=== PATIENT | male | born 1970 | race Caucasian/White ===

== ENCOUNTER 2023-12-28 12:11 | Emergency (ER) | payer MEDICAID, SELFPAY ==
[2023-12-28 12:22] VITALS: BP 129/81; PULSE 74; RESP 18; TEMP 36.8; O2SAT 94; BMI 28.7
--- NOTE | 2023-12-28 12:31 | EDNOTE_ITS ---
ED Dental RME/HPI General Chief complaint: Dental/Oral/Throat Stated complaint: DENTAL PAIN/SWELLING Time Seen by Provider: 12/28/23 12:13 Arrival date/time: 12/28/23 12:11 53-year-old male presents emerged department complains of right lower dental pain patient for symptoms well for last couple of days patient reports no fever nausea vomiting Limitations: no limitations Related Data Previous Rx's ?Medication ?Instructions ?Recorded amoxicillin 875 mg-potassium 1 tab PO BID 7 days #14 tabs 12/28/23 clavulanate 125 mg tablet hydrocodone 5 mg-acetaminophen 325 1 tab PO BID PRN pain #8 tabs 12/28/23 mg tablet ibuprofen 800 mg tablet 800 mg PO TID PRN pain #30 tabs 12/28/23 Allergies Allergy/AdvReac Type Severity Reaction Status Date / Time No Known Allergies Allergy Verified 12/28/23 12:14 Review of Systems Review of Systems Systems Reviewed: All systems reviewed, normal except as documented Constitutional Constitutional: Reports system reviewed and no additional complaints, except as documented, Denies fever(s) and Denies headache(s) Eyes Eyes: Reports system reviewed and no additional complaints, except as documented and Denies blurry vision ENT Ears, Nose, Mouth, and Throat: Reports system reviewed and no additional complaints, except as documented, Reports dental pain, Reports facial pain, Denies headache(s), Denies nasal congestion and Denies nasal discharge Cardiovascular Cardiovascular: Reports system reviewed and no additional complaints, except as documented, Denies chest pain and Denies dyspnea Respiratory Respiratory: Reports system reviewed and no additional complaints, except as documented, Denies chest congestion, Denies cough and Denies dyspnea Gastrointestinal Gastrointestinal: Reports system reviewed and no additional complaints, except as documented and Denies abdominal pain Integumentary/Breasts Skin/Breast: Reports system reviewed and no additional complaints, except as documented and Denies rash Neurologic Neurologic: Reports system reviewed and no additional complaints, except as documented, Reports as per HPI and Denies headache(s) Past Medical History Social History SMOKING STATUS: Never smoker ED Exam General Limitations: Present no limitations General appearance: Present alert and in no apparent distress Head Head exam: Present atraumatic Eye Eye exam: Present normal appearance, PERRL and EOMI ENT ENT exam: Present mucous membranes moist Expanded ENT Exam Teeth exam: Present dental caries, fractured tooth #, dental tenderness # and gingival swelling Throat exam: Absent tonsillar erythema or tonsillomegaly Neck Neck exam: Present normal inspection, full ROM and trachea midline Chest Chest inspection: Present normal inspection and symmetric chest wall rise Respiratory Respiratory exam: Present normal lung sounds bilaterally Cardiovascular Cardiovascular exam: Present regular rate, normal rhythm and normal heart sounds Abdominal Exam Abdominal exam: Present soft and normal bowel sounds Extremities Exam Extremities exam: Present normal inspection and full ROM Back Exam Back exam: Present normal inspection and full ROM Neurological Exam Neurological exam: Present alert, oriented X3 and CN II-XII intact Psychiatric Psychiatric exam: Present normal affect and normal mood Skin Skin exam: Present warm, dry, intact and normal color Course Quality Measures none Orders Category Date Time Status Ibuprofen Tab [Motrin Tab] Med 12/28/23 12:29 Discontinued 800 mg PO X1 ONE Lidocaine 1% 20 ml [Xylocaine 1% 20 ML] Med 12/28/23 12:29 Discontinued 2.1 ml INFL X1 ONE cefTRIAXone [Rocephin] Med 12/28/23 12:29 Discontinued 1,000 mg IM X1 ONE Vital Signs Vital signs: Vital Signs Temperature 98.3 F 12/28/23 12:22 Pulse Rate 74 12/28/23 12:22 Respiratory Rate 18 12/28/23 12:22 Blood Pressure 129/81 12/28/23 12:22 Pulse Oximetry (%) 94 L 12/28/23 12:22 Oxygen Delivery Method Room Air 12/28/23 12:22 O2 saturation 94% room air within the limits Dental / Oral MDM Narrative MDM Narrative:: 53-year-old male presents emergency department complains of right lower dental pain patient for symptoms well for last couple of days patient reports no fever nausea vomiting On exam patient well-appearing patient does not appear ill or toxic Exam patient does have right lower jaw swelling and dental pain patient has poor dentition Patient given Rocephin as well as pain medication discharged with antibiotics and pain medication Patient struck to follow-up with dentist soon as possible Patient data External records reviewed:: [facility] previous records Clinical information provided by:: patient Social determinants that could affect healthcare access:: none Patient has the following chronic illnesses:: None How is presenting disease/condition affected by chronic disease/condition?: no chronic disease Evaluation data The following diagnostics were reviewed and interpreted by me:: other (specify) (N/A) Lab and/or radiology exams considered but not ordered:: Consider not ordered Interpretation Summary: N/A Medications / Prescriptions Medications or Prescriptions considered but not ordered:: Given Medication administrations:: Medication Administration History Discontinued Medications Ceftriaxone Sodium (Ceftriaxone Sod Inj 1,000 Mg Vial) 1,000 mg IM X1 ONE Stop: 12/28/23 12:30 Last Admin: 12/28/23 12:46 Dose: 1,000 mg Documented By: SELENA Ibuprofen (Ibuprofen Tab 400 Mg Tablet) 800 mg PO X1 ONE Stop: 12/28/23 12:30 Last Admin: 12/28/23 12:46 Dose: 800 mg Documented By: SELENA Lidocaine HCl (Lidocaine Hcl 1% 20 Ml Vial) 2.1 ml INFL X1 ONE Stop: 12/28/23 12:30 Last Admin: 12/28/23 12:46 Dose: 2.1 ml Documented By: MP Given Consultations Consultation(s) initiated? (list below): No Diagnosis Dental Differential Diagnosis: gingival abscess, dental caries, toothache, dental abscess and fracture of tooth Most likely diagnosis given after review of the tests above:: Dental pain Admission Indicated Admission indicated?: not indicated Admission Request Was there a request for admission?: No Disposition Plan Disposition Plan: Discharge Discharge Attestation Discharge Attestation: The patient and all family members were given an opportunity to ask questions and understood the discharge instructions. Discharge instructions specifically effects, indications for sooner follow up or return to the emergency department, and the expected course of current diagnosis. Patient condition: Stable Discharge Plan Plan Patient Disposition: HOME (Self Care) Disposition Comment: Stable Prescriptions/Referrals Prescriptions/Med Rec: New ibuprofen 800 mg tablet 800 mg PO TID PRN (Reason: pain) Qty: 30 0RF hydrocodone-acetaminophen 5-325 mg tablet 1 tab PO BID MDD 10 PRN (Reason: pain) Qty: 8 0RF amoxicillin-pot clavulanate 875-125 mg tablet 1 tab PO BID 7 Days Qty: 14 0RF Problem List Clinical Impression: Dental abscess Patient/Caregiver Discharge Instructions Education Materials: Dental Abscess Additional Instructions: Please see dentist soon as possible for worsening symptoms return immediately Print Language: Turkish Stand Alone Forms: Sudha Award Info., Patient Portal Info Letter PA/YOBANY Supervising Physician PA/YOBANY Supervising Physician: Dr. Fregoso
[2023-12-28] MEDS: IBUPROFEN TAB 400 MG TABLET 800 MG PO (12:46)
[2023-12-28] MEDS: LIDOCAINE HCL 1% 20 ML VIAL 2.1 ML INFL (12:46)
[2023-12-28] MEDS: cefTRIAXone SOD INJ 1,000 MG VIAL 1000 MG IM (12:46)
== END 2023-12-28 12:47 | disposition home or self-care (01) ==
LOC: SERX 12:49
PROVIDERS: Emergency Provider Emergency Medicine; PCP Nurse Practitioner Women's Health
DX: K04.7 Periapical abscess without sinus (principal)
CPT/HCPCS: 96372; 99283; J0696; J3490; A9270

== ENCOUNTER 2024-04-26 13:58 | Emergency (ER) | payer SELFPAY ==
[2024-04-26 14:24] VITALS: BP 125/79; PULSE 76; RESP 16; TEMP 36.7; O2SAT 95; BMI 27.3
--- NOTE | 2024-04-26 14:33 | EDNOTE_ITS ---
ED Psych RME/HPI General Chief Complaint: Psychiatric Symptoms Stated Complaint: I HEAR VOICES ; HAS REFERREL FROM HUMAN RESOURCES Time Seen by Provider: 04/26/24 14:33 Arrival date/time: 04/26/24 13:58 53-year-old male with medical history significant for psychiatric disorder and previous history of methamphetamine abuse presents requesting I fill out his disability paperwork. Current patient reports no chest pain no shortness of breath no headache does not weakness no suicidal or homicidal ideation Limitations: no limitations Related Data Previous Rx's ?Medication ?Instructions ?Recorded hydrocodone 5 mg-acetaminophen 325 1 tab PO BID PRN pa in #8 tabs 12/28/23 mg tablet ibuprofen 800 mg tablet 800 mg PO TID PRN pain #30 t abs 12/28/23 Allergies Allergy/AdvReac Type Severity Reaction Status Date / Time No Known Allergies Allergy Verified 04/26/24 14:00 Review of Systems Review of Systems Systems Reviewed: All systems reviewed, normal except as documented Constitutional Constitutional: Reports system reviewed and no additional complaints, except as documented, Denies fever(s) and Denies headache(s) Eyes Eyes: Reports system reviewed and no additional complaints, except as documented and Denies blurry vision ENT Ears, Nose, Mouth, and Throat: Reports system reviewed and no additional complaints, except as documented, Denies headache(s), Denies nasal congestion and Denies nasal discharge Cardiovascular Cardiovascular: Reports system reviewed and no additional complaints, except as documented, Denies chest pain and Denies dyspnea Respiratory Respiratory: Reports system reviewed and no additional complaints, except as documented, Denies chest congestion, Denies cough and Denies dyspnea Gastrointestinal Gastrointestinal: Reports system reviewed and no additional complaints, except as documented and Denies abdominal pain Integumentary/Breasts Skin/Breast: Reports system reviewed and no additional complaints, except as documented and Denies rash Neurologic Neurologic: Reports system reviewed and no additional complaints, except as documented, Reports as per HPI and Denies headache(s) Past Medical History Social History SMOKING STATUS: Light (< 1 pack/day) ED Exam General Limitations: Present no limitations General appearance: Present alert and in no apparent distress Head Head exam: Present atraumatic Eye Eye exam: Present normal appearance, PERRL and EOMI ENT ENT exam: Present normal exam, normal oropharynx and mucous membranes moist Neck Neck exam: Present normal inspection, full ROM and trachea midline Chest Chest inspection: Present normal inspection and symmetric chest wall rise Respiratory Respiratory exam: Present normal lung sounds bilaterally Cardiovascular Cardiovascular exam: Present regular rate, normal rhythm and normal heart sounds Abdominal Exam Abdominal exam: Present soft and normal bowel sounds Extremities Exam Extremities exam: Present normal inspection and full ROM Back Exam Back exam: Present normal inspection and full ROM Neurological Exam Neurological exam: Present alert, oriented X3, CN II-XII intact, normal gait and reflexes normal; Absent motor sensory deficit Psychiatric Psychiatric exam: Present normal affect and normal mood; Absent depressed, agitated, anxious, flat affect, manic or homicidal ideation Skin Skin exam: Present warm, dry, intact and normal color Course Quality Measures none Vital Signs Vital signs: Vital Signs Temperature 98.0 F 04/26/24 14:24 Pulse Rate 76 04/26/24 14:24 Respiratory Rate 16 04/26/24 14:24 Blood Pressure 125/79 04/26/24 14:24 Pulse Oximetry (%) 95 04/26/24 14:24 Oxygen Delivery Method Room Air 04/26/24 14:24 O2 saturation 95% on room air within normal limits Psych MDM Narrative MDM Narrative:: 53-year-old male with medical history significant for psychiatric disorder and previous history of methamphetamine abuse presents requesting I fill out his disability paperwork. Current patient reports no chest pain no shortness of breath no headache does not weakness no suicidal or homicidal ideation I discussed the case with the social work coordinator who was able to make a appointment with him on Tuesday with mental health At time of discharge patient no distress Patient discharged home in no distress to follow-up with primary care doctor in the next 24 to 48 hours and for any worsening symptoms to return to the ER immediately Patient data External records reviewed:: [facility] previous records Clinical information provided by:: patient Social determinants that could affect healthcare access:: mental health Patient has the following chronic illnesses:: Mental health How is presenting disease/condition affected by chronic disease/condition?: caus ed by Evaluation data The following diagnostics were reviewed and interpreted by me:: other (specify) Lab and/or radiology exams considered but not ordered:: Consider not ordered Interpretation Summary: N/A Medications / Prescriptions Medications or Prescriptions considered but not ordered:: No meds Medication administrations:: No meds Consultations Consultation(s) initiated? (list below): No Diagnosis Psych Differential Diagnosis: acute psychosis, chronic schizophrenia and acute anxiety Most likely diagnosis given after review of the tests above:: Schizophrenia Admission Indicated Admission indicated?: not indicated Admission Request Was there a request for admission?: No Disposition Plan Disposition Plan: Discharge Discharge Attestation Discharge Attestation: The patient and all family members were given an opportunity to ask questions and understood the discharge instructions. Discharge instructions specifically effects, indications for sooner follow up or return to the emergency department, and the expected course of current diagnosis. Patient condition: Stable Discharge Plan Plan Patient Disposition: HOME (Self Care) Disposition Comment: Stable Prescriptions/Referrals Prescriptions/Med Rec: No Action ibuprofen 800 mg tablet 800 mg PO TID PRN (Reason: pain) Qty: 30 0RF hydrocodone-acetaminophen 5-325 mg tablet 1 tab PO BID MDD 10 PRN (Reason: pain) Qty: 8 0RF Problem List Clinical Impression: Psychiatric disorder Patient/Caregiver Discharge Instructions Education Materials: Journaling for Mental Health Additional Instructions: Please keep your appointment tomorrow with mental health for worsening symptoms or concerns return immediately Print Language: Estonian Stand Alone Forms: Sudha Award Info., Patient Portal Info Letter KAYDEN/YOBANY Supervising Physician KAYDEN/YOBANY Supervising Physician: dr rizo
--- NOTE | 2024-04-26 14:36 | PC.CC ---
ASWGwendolyn was consulted by JOSÉ MIGUEL Garcia regarding an appointment for mental health for the patient as he needs a mental health provider to sign documents for him regarding his mother. At this time patient denies any mental health and SI/HI/VH/AH. ASW sent referral to [facility] and scheduled an appointment for April 30, 2024 at 0900. Patient was provided with appointment time and date as well as a [facility] Community Resource Guide.
== END 2024-04-26 14:40 | disposition home or self-care (01) ==
LOC: SERX 14:49
PROVIDERS: Emergency Provider Emergency Medicine
DX: F99 Mental disorder, not otherwise specified (principal)
CPT/HCPCS: 99281

== ENCOUNTER 2024-07-20 18:35 | Emergency (ER) | payer MEDICAID, SELFPAY ==
[2024-07-20 19:08] VITALS: BP 119/75; PULSE 75; RESP 18; TEMP 36.9; O2SAT 95
--- NOTE | 2024-07-20 19:26 | EDNOTE_ITS ---
<Statement entered by Radha Masrhall MD - 07/21/24 03:41> As co-signing physician, I was present and available for consult prn. I concur with the plan and care as documented by the midlevel provider. ED Skin Abcess FB-RME/HPI General Chief complaint: Skin/Abscess/Foreign Body Stated complaint: Abscess to right arm Time Seen by Provider: 07/20/24 18:56 Arrival date/time: 07/20/24 18:35 RME / HPI RME / HPI narrative: 53-year-old male patient came in for abscess to the right forearm. Patient noticed it for the last 2 days. This morning getting worse. Denies any fever denies any other complaints no medications taken prior travel. Related Data Previous Rx's ?Medication ?Instructions ?Recorded hydrocodone 5 mg-acetaminophen 325 1 tab PO BID PRN pa in #8 tabs 12/28/23 mg tablet ibuprofen 800 mg tablet 800 mg PO TID PRN pain #30 t abs 12/28/23 ibuprofen 800 mg tablet 800 mg PO TID PRN pain #30 t abs 07/20/24 sulfamethoxazole 800 1 tab PO BID #14 tabs mg-trimethoprim 160 mg tablet (Bactrim DS) Allergies Allergy/AdvReac Type Severity Reaction Status Date / Time No Known Allergies Allergy Verified 07/20/24 18:40 Review of Systems Review of Systems Narrative Review of Systems: Review of system reviewed and within normal limits except mentioned in HPI ED Exam Narrative Physical exam: VITAL SIGNS: Reviewed. GENERAL APPEARANCE: Alert and interactive, follows commands, no acute distress, HEAD AND FACE: Non-traumatic. ENT: PERRL, pink conjunctivitis, eyelid no trauma, Mucous membrane moist. NECK: Supple, nontender, no nuchal rigidity. CHEST: No tenderness, no crepitus, no paradoxical movement, no retractions. LUNGS: Clear, well ventilated, symmetric, no rales, no wheezing, no ronchi, no stridor, good breath sounds bilaterally. HEART: Regular rate, regular rhythm, no murmur, no gallops. ABDOMEN: Soft, positive bowel sounds, nondistended, no guarding, nontender, no rebound, no masses, RECTAL: Deferred. GENITAL: Deferred. NEUROLOGICAL: Gross motor function intact sensory function intact, Appropriate for age. MUSCULOSKELETAL: low back nontender, full range of motion. EXTREMITIES:+1x1 cm swelling, puslike appearance, dorsal aspect of the forearm mild redness noted full range of motion of the wrist and elbow SKIN: Color pink, dry, no rash, no lacerations, no abrasions, no contusions. LYMPHATICS: Deferred. Course Quality Measures none Orders Category Date Time Status Trimethoprim/Sulfa 160/800 Ds [Bactrim Ds] Med 07/20/24 19:23 Once 1 tab PO X1 ONE Vital Signs Vital signs: Vital Signs Temperature 98.5 F 07/20/24 19:08 Pulse Rate 75 07/20/24 19:08 Respiratory Rate 18 07/20/24 19:08 Blood Pressure 119/75 07/20/24 19:08 Pulse Oximetry (%) 95 07/20/24 19:08 Oxygen Delivery Method Room Air 07/20/24 19:08 Skin / Abscess / Foreign Body MDM Narrative MDM Narrative:: 53-year-old male patient came in for abscess to the right forearm. Patient noticed it for the last 2 days. This morning getting worse. Denies any fever denies any other complaints no medications taken prior to ER visit. Patient's vaccination for tetanus is less than 5 years. Wound cleansed with skin cleanser and Betadine, with the use of a knife I was able to drain the abscess without anesthesia. Patient tolerated the procedure well. Sterile dressing applied. Patient received Bactrim p.o. Patient data External records reviewed:: None Clinical information provided by:: patient Social determinants that could affect healthcare access:: none Patient has the following chronic illnesses:: None How is presenting disease/condition affected by chronic disease/condition?: no chronic disease Evaluation data The following diagnostics were reviewed and interpreted by me:: other (specify) Lab and/or radiology exams considered but not ordered:: none Interpretation Summary: none Medications / Prescriptions Medications or Prescriptions considered but not ordered:: None Medication administrations:: Medication Administration History Discontinued Medications Trimethoprim/Sulfamethoxazole (Trimethoprim/Sulfa 160/800 Ds Tablet) 1 tab PO X1 ONE Stop: 07/20/24 19:24 Last Admin: 07/20/24 19:32 Dose: 1 tab Bactrim Consultations Consultation(s) initiated? (list below): No Diagnosis Skin/Abscess Differential Diagnosis: abscess of skin or subcutaneous tissue and cellulitis Most likely diagnosis given after review of the tests above:: Abscess forearm Admission Indicated Admission indicated?: not indicated Admission Request Was there a request for admission?: No Disposition Plan Disposition Plan: Discharge Discharge Attestation Discharge Attestation: The patient and all family members were given an opportunity to ask questions and understood the discharge instructions. Discharge instructions specifically effects, indications for sooner follow up or return to the emergency department, and the expected course of current diagnosis. Patient condition: Stable Discharge Plan Plan Patient Disposition: HOME (Self Care) Discharge Disposition comment: Stable Prescriptions/Referrals Prescriptions/Med Rec: New ibuprofen 800 mg tablet 800 mg PO TID PRN (Reason: pain) Qty: 30 0RF sulfamethoxazole-trimethoprim [Bactrim DS] 800-160 mg tablet 1 tab PO BID Qty: 14 0RF No Action ibuprofen 800 mg tablet 800 mg PO TID PRN (Reason: pain) Qty: 30 0RF hydrocodone-acetaminophen 5-325 mg tablet 1 tab PO BID MDD 10 PRN (Reason: pain) Qty: 8 0RF Problem List Clinical Impression: Abscess of forearm Patient/Caregiver Discharge Instructions Discharge Activity: activity as tolerated Education Materials: ED Abscess, Incision And Drainage Additional Instructions: Thank you for the opportunity for serving you today. You are stable for discharged . You are advised to: Follow-up with your PCP in 1 to 2 days Return to ED for worsening of symptoms Increase oral fluids Take medication as prescribed Daily dressing with bacitracin as needed Print Language: Welsh Stand Alone Forms: Sudha Award Info., Patient Portal Info Letter KAYDEN/YOBANY Supervising Physician ANNIE Supervising Physician: MD Elfego
[2024-07-20] MEDS: TRIMETHOPRIM/SULFA 160/800 DS TABLET 1 TAB PO (19:32)
== END 2024-07-20 19:55 | disposition home or self-care (01) ==
LOC: SERX 19:45
PROVIDERS: Emergency Provider Emergency Medicine
DX: L02.413 Cutaneous abscess of right upper limb (principal)
CPT/HCPCS: 10060; 99283; A9270